=== PATIENT | female | born 1970 | race Caucasian/White ===

== ENCOUNTER 2023-07-31 05:00 | Emergency (ER) | payer OTHER ==
[2023-07-31] MEDS ORDERED: Sodium Chloride 0.9% 10 ML Syringe FLUSH PRN (05:26)
[2023-07-31 05:39] LABS: BASOPHILS PERCENT AUTO 0.3 % (0.2-1.2); EOSINOPHILS ABSOLUTE AUTO 0.2 x10^3/uL (0.0-0.5); EOSINOPHILS PERCENT AUTO 1.3 % (0.0-4.0); HEMATOCRIT 39.8 % (33.0-47.0); HEMOGLOBIN 13.4 g/dL (12.0-16.0); IMMATURE GRAN ABSOLUTE AUTO 0.03 x10^3/uL (0.00-0.07); LYMPHOCYTES ABSOLUTE AUTO 0.7 x10^3/uL (1.0-4.8); MEAN CORPUSCULAR HEMOGLOBIN 29.2 pg (26.0-32.0); MEAN CORPUSCULAR HGB CONC 33.7 g/dL (32.0-36.0); MEAN CORPUSCULAR VOLUME 86.7 fL (78.0-93.0); MONOCYTES ABSOLUTE AUTO 0.7 x10^3/uL (0.0-0.8); MONOCYTES PERCENT AUTO 5.3 % (2.0-11.0); NEUTROPHILS ABSOLUTE AUTO 12.3 x10^3/uL (1.8-7.7); NEUTROPHILS PERCENT AUTO 87.9 % (50.0-80.0); PLATELET COUNT,PLT 167 x10^3/uL (130-400); RED BLOOD CELL COUNT 4.59 x10^6/uL (4.00-5.50)
[2023-07-31] MEDS: HYDROmorphone 0.5 MG/0.5 ML Syringe IVPUSH ONE (05:39)
[2023-07-31 05:53] LABS: INR 1.1 (0.9-1.1); PROTHROMBIN TIME 11.5 SEC (8.9-11.5); PTT,PARTIAL THROMBOPLSTIN TIME 32.1 SEC (21.9-33.8)
[2023-07-31 05:56] LABS: A/G RATIO 0.66; ALBUMIN 3.1 g/dL (3.4-5.0); ANION GAP 17.2 mmol/L (5-15); BILIRUBIN TOTAL 0.6 mg/dL (0.2-1.0); CALCIUM 9.6 mg/dL (8.5-10.1); CREATININE 0.7 mg/dL (0.55-1.02); EST CRCL DRUG DOSING (CG) 88.01 mL/min; POTASSIUM,K 3.2 mmol/L (3.5-5.1); PROTEIN TOTAL,TP 7.8 g/dL (6.4-8.2)
[2023-07-31] MEDS: cefTRIAXone 2 GM Vial IVPUSH ONE (06:02)
[2023-07-31] MEDS: Piperacillin/Tazobactam 4.5 GM in Sodium Chloride 0.9% 100 ML IV ONE (06:18)
[2023-07-31 06:23] VITALS: BP 122/66; PULSE 86
[2023-07-31 06:34] LABS: LACTIC ACID 0.5 mmol/L (0.4-2.0)
== END 2023-07-31 06:26 | disposition home or self-care (01) ==
LOC: VM.ED 05:00
DX: K65.1 Peritoneal abscess (principal); Z79.899 Other long term (current) drug therapy; Z91.040 Latex allergy status
CPT/HCPCS: 71045; 80053; 83605; 85025; 85610; 85730; 94760; 96365; 96375; 99285-25; J0696; J1170; J2543; J3490